=== PATIENT | female | born 1975 | race Caucasian/White ===

== ENCOUNTER → 2024-03-13 16:29 | Outpatient (REF) | payer OTHER, SELFPAY | LOC: HWWDC 16:29 | PROVIDERS: ATTENDING PHYSICIAN Family Medicine | DX: Z12.31 Encounter for screening mammogram for malignant neoplasm of breast (principal) | CPT/HCPCS: 77063; 77067 ==

== ENCOUNTER → 2025-05-08 06:43 | Outpatient (REF) | payer OTHER, SELFPAY | LOC: MRI 3T 06:43 | PROVIDERS: ATTENDING PHYSICIAN Podiatrist Foot & Ankle Surgery; FAMILY PHYSICIAN Family Medicine | DX: S96.812A Strain of other specified muscles and tendons at ankle and foot level, left foot, initial encounter (principal) | CPT/HCPCS: 73721 ==